=== PATIENT | female | born 1945 | race Caucasian/White ===

== ENCOUNTER 2017-02-01 06:08 | Day surgery (SDC) | payer OTHER ==
[2017-01-31 15:55] VITALS: BMI 23.9
[~2017-02-01 06:08] MED LIST: LIDOCAINE HCL 1%, 10 MG/ML (20ML VIAL) IJ ONE
[2017-02-01] MEDS ORDERED: LIDOCAINE HCL 1%, 10 MG/ML (20ML VIAL) ONE (07:07)
--- NOTE | 2017-02-01 08:06 | HP ---
History & Physical Update - History History: No Change - Physical Physical: No Change - Assessment Assessment: No Change - Plan Plan: No Change
[2017-02-01] MEDS ORDERED: MIDAZOLAM HCL 2 MG/2 ML SINGLE DOSE VIAL ONE ×2 (08:16)
[2017-02-01] MEDS ORDERED: PROPOFOL 20 ML ONE (08:16)
[2017-02-01] MEDS ORDERED: ceFAZolin SODIUM 1 GM VIAL IVPB ONE ×2 (08:20→08:22)
[2017-02-01] MEDS ORDERED: LIDOCAINE 1%/EPI 1:100000 (50 ML MULTI DOSE VIAL) ONE (08:22)
[2017-02-01] MEDS ORDERED: LIDOCAINE 1%/EPI 1:100000 (50 ML MULTI DOSE VIAL) INF ONE (08:30)
[2017-02-01] MEDS ORDERED: PROMETHAZINE HCL 25 MG/1 ML VIAL IVPUSH PRN (09:03)
[2017-02-01] MEDS ORDERED: oxyCODONE HCL 5 MG TABLET PO PRN (09:03)
[2017-02-01] MEDS ORDERED: ONDANSETRON 4 MG/2 ML VIAL IVPUSH PRN (09:03)
[2017-02-01 10:43] VITALS: TEMP 97.8
[2017-02-01 11:21] VITALS: BP 139/64; PULSE 52
--- NOTE | 2017-02-01 22:00 | OP ---
DATE OF OPERATION: 02/01/2017 PROCEDURE: Excision of left perineal cyst and a right labial skin lesion. PREOPERATIVE DIAGNOSIS: Perineal sebaceous cyst and right labial skin lesion. POSTOPERATIVE DIAGNOSIS: Perineal sebaceous cyst and right labial skin lesion. ANESTHESIA: Local with sedation. FINDINGS AND PROCEDURE: This is a 71-year-old female who presents with a previously-infected cyst of the perineum, of the right labia majora, for which initial incision and drainage was done. Six weeks after, a residual cyst was noted so patient was advised removal of the cyst. Adjacent to the area, superior to the cyst, was a 1.5-cm elevated pigmented skin lesion, so patient desired excisional biopsy of the skin lesions. Consent was obtained for removal of both lesions, after discussing the risks, benefits, and alternatives to the procedure. Patient was brought to the operating room and placed in supine position. Intravenous sedation was given by the anesthesia team. The operative site was prepped and draped in the usual sterile fashion. Using lidocaine 1% with epinephrine, local anesthesia was administered to the proposed incision sites. Two elliptical incisions over the cyst and the skin lesion were made using scalpel blade number 15. Dissection was carried further using Bovie cautery until the cyst together with the ellipse of skin was completely removed. The skin lesion was also excised in the same manner. The wounds were then closed with interrupted Vicryl 3-0 suture for the dermis and continuous Biosyn 4-0 for the subcuticular layer. The wound closure was reinforced with Dermabond. The patient was transferred to the post-anesthesia care unit in satisfactory condition. Estimated blood loss was about 1 mL. Wound class clean. The patient received 1 g of Ancef prior to the start of the procedure. Jazmín [id number]
--- NOTE | 2017-02-02 13:02 | PATH ---
Surgical Pathology Report Patient Name: DARIELA AYALA [facility], [place]. Rec. #: [id number] /Age/Gender: 1945 (Age: 71) / F Account: [id number] Location: [facility] SURGICAL Taken: 02/01/2017 Received: 02/01/2017 Reported: 02/02/2017 Physicians: Jose Bejarano M.D. Specimen(s) Received A: RIGHT PERINEAL CYST B: SKIN LESION RIGHT LABIAL Clinical History Right perineal cyst and labial skin lesion Final Diagnosis A. PERINEAL CYST, RIGHT, EXCISION: CONSISTENT WITH RUPTURED INCLUSION CYST. B. SKIN, RIGHT LABIAL, LESION, EXCISION: SEBORRHEIC KERATOSIS. Electronically Signed Christos Guerrero M.D. Gross Description A. Received in formalin labeled "cyst right perineal" are 2 irregular, unoriented portions of soft tissue measuring 0.5 x 0.4 x 0.1 cm and 1.0 x 0.9 x 0.3 cm. The larger portion is surfaced by a 1.0 x 0.3 cm gibbons, elliptical, unremarkable portion of skin. The specimens are inked black, sectioned and entirely submitted in one cassette. B. Received in formalin labeled "skin lesion right labia" is a 1.1 x 0.5 cm gibbons, elliptical, unoriented portion of skin excised to a depth of 0.9 cm. The epidermal surface displays a 0.8 x 0.5 cm brown lesion. The specimen is inked black and serially sectioned. The specimen is entirely submitted in 2 cassettes as follows: 1-undesignated tips; 2-remainder of specimen. /02/01/201702/01/2017
== END 2017-02-01 11:20 | disposition home or self-care (01) ==
LOC: JASU-SURG 06:08
PROVIDERS: ATTEND Surgery
PROC: 0HB9XZZ Excision of Perineum Skin, External Approach (ICD-10-PCS; principal; 2017-02-01 08:00)
DX: L72.3 Sebaceous cyst (principal); L82.1 Other seborrheic keratosis
CPT/HCPCS: 88304-TC; 88305-TC; 94760